=== PATIENT | female | born 1930 | race Caucasian/White ===

== ENCOUNTER 2019-12-22 06:39 | Observation (INO) ==
--- NOTE | 2019-11-24 13:13 | PAT Medication Instructions ---
Medication Instructions Date of Service November 24, 2019 Home Medications acetaminophen [Tylenol] 325 mg PO QID PRN multivitamin 1 tab PO DAILY naproxen sodium [Aleve] 220 mg PO BID PRN ASK your surgeon for instructions naproxen sodium [Aleve] 220 mg PO BID PRN DO NOT take the morning of surgery multivitamin 1 tab PO DAILY Take morning of surgery With a small sip of water, OTHERWISE NOTHING TO EAT OR DRINK AFTER MIDNIGHT: acetaminophen [Tylenol] 325 mg PO QID PRN (okay to take up to 4 hours prior to s urgery if needed) Take evening before surgery acetaminophen [Tylenol] 325 mg PO QID PRN (if needed) Other Notes If you have any questions please call us at [phone] or [phone] or [phone] or [phone]
--- NOTE | 2019-11-26 14:49 | Anesthesiology Consultation ---
Date of Service November 26, 2019 Assessment & Plan (1) Encounter for pre-operative examination: - Systolic murmur at PAT visit: note sent to PCP requesting ECHO preoperatively (Dr. St). Per PAT assessment on 11/25: Travel screen-Lives in [facility]. No known COVID-19 positive contacts. No current COVID-19 related symptoms. No hx of COVID-19 testing. Patient scheduled for preop COVID testing 12/16 (at surgeon's office). Awaiting results. Chart Review Chart Review: Patient seen in Pre Admission Testing Teaching & Discussion Pre-Anesthesia Teaching/Discussion Notes: Instructed NPO after midnight before surgery,except medications with 15 cc of water. Medication instructions provided according to the PAT guidelines. History Surgery Operation Date: 12/22/19 10:40 Proposed Procedures p Left Total Hip Replacement - Tunde Staley MD Height/Weight Height: 5 ft 7 in Weight: 73.9 kg Allergies Allergy/AdvReac Type Severity Reaction Status Date / Time No Known Allergies Allergy Verified 11/19/19 12:24 Medications Home Medications Medication Instructions Recorded Confirmed Last Taken acetaminophen [Tylenol] 325 mg PO QID PRN 11/19/19 11/19/19 Unknown multivitamin 1 tab PO DAILY 11/19/19 11/19/19 Unknown naproxen sodium [Aleve] 220 mg PO BID PRN 11/19/19 11/19/19 Unknown Past Medical History Medical History Arthritis of left hip Claustrophobia Osteoarthritis Exercise / Class Metabolic Activity III < 4 Walking/Shop/Light housework Past Family History Family History Other No family history of adverse response to anesthesia Past Surgical History Surgical History History of cataract surgery History of cholecystectomy History of colonoscopy History of knee replacement procedure of left knee History of knee replacement procedure of right knee History of total abdominal hysterectomy and bilateral salpingo-oophorectomy Past Anesthesia History No Hx of Anesthesia Complications (except post-op nausea) and No Family Hx of Anesthesia Complications History of PONV No Hx of Motion Sickness and History of PONV (+ nausea) Social History Smoking Status: Never smoker Do You Dip or Chew Tobacco: No Hx Alcohol Use: No Hx Substance Use: No substance use type: does not use Review of Systems Mild reflux. Patient denies chest pain, shortness of breath, fever, chills, reflux, cough, wheezing, palpitations. Physical Exam Vital Signs VITALS BP 158/80 P 74 TEMP 98.4 SP02 98%RA RESP 18 PHYSICAL Full neck and c-spine range of motion. Full TMJ range of motion. TMD 3 finger breaths Mallampati Score 3 Dentition:full dentures upper/lower Lungs: clear throughout to auscultation Cardiac: regular rate and rhythm, II/ systolic murmur Spine: normal Carotid arteries: negative bruit Extremities: no edema Testing Laboratory Results 11/26/19 15:25 11/26/19 15:25 PT 10.4 Seconds (9.0-12.0) 11/26/19 15:25 INR 1.0 (0.9-1.1) 11/26/19 15:25 APTT 32.4 Seconds (21.0-31.0) H 11/26/19 15:25 Blood Type A Positive 11/26/19 15:25 Antibody Screen POSITIVE A 11/26/19 15:25 Blood bank aware/state nothing further needed preoperatively regarding + T&S antibodies* Preop testing to be faxed to PCP for their reference* Electrocardiogram Date: 11/26/19 SR with PAC's at 71bpm. RAD. unconfirmed report* Chest X-Ray Date: 11/26/19 Negative chest. Mild emphysematous change
[2019-11-26 16:03] LABS: Basophils # (auto) 0.02 K/uL (0-0.2); Basophils % (auto) 0.4 %; Eosinophils # (auto) 0.03 K/uL (0-0.5); Eosinophils % (auto) 0.6 %; Hematocrit (blood only) 32.3 % (37-47); Hemoglobin 10.4 g/dL (12.0-16.0); Immature Granulocytes # (auto) 0.01 K/uL (0.00-0.02); Immature Granulocytes % (auto) 0.2 %; Lymphocytes # (auto) 1.25 K/uL (1.2-3.4); Mean Corpuscular Hemoglobin 30.4 pg (25-34); Mean Corpuscular Hgb Conc 32.2 g/dL (32-36); Mean Corpuscular Volume 94.4 fL (80-100); Mean Platelet Volume 9.7 fL (7.4-10.4); Monocytes # (auto) 0.45 K/uL (0.11-0.59); Neutrophils # (auto) 3.25 K/uL (1.4-6.5); Neutrophils % (auto) 64.8 %; Platelet Count 259 K/uL (130-400); RDW Coefficient of Variation 14.4 % (11.5-14.5); RDW Standard Deviation 49.9 fL (36.4-46.3); Red Blood Count 3.42 M/uL (4.2-5.4); White Blood Count 5.01 K/uL (4.8-10.8)
[2019-11-26 16:13] LABS: Partial Thromboplastin Ratio 1.2; Partial Thromboplastin Time 32.4 Seconds (21.0-31.0); Prothrombin Time 10.4 Seconds (9.0-12.0)
--- NOTE | 2019-11-26 16:19 | XRay Report ---
XR chest Pre-admission PA/Lat CLINICAL HISTORY: pat preoperative COMPARISON STUDY: No previous studies for comparison. FINDINGS: The bones soft tissues and hemidiaphragms are normal. The cardiomediastinal silhouette is n ormal. The lungs are clear. The pulmonary vasculature is normal. IMPRESSION: Negative chest. Mild emphysematous change ACT 112: Negative or not required by law. The above report was generated using voice recognition software. It may contain grammatical, syntax or spelling errors. Electronically signed by: Ralph Ochoa M.D. 11/26/2019 4:18 PM
[2019-11-26 16:34] LABS: BUN Creatinine Ratio 31.2 (10-20); Blood Urea Nitrogen 30 mg/dl (7-18); C Reactive Protein < 0.29 mg/dl (0-0.29); Calcium 9.3 mg/dl (8.5-10.1); Carbon Dioxide 29 mmol/L (21-32); Chloride 108 mmol/L (98-107); Est GFR (African American) 60.4; Est GFR (Non-African American) 52.1; Glucose 85 mg/dl (70-99); Potassium 4.5 mmol/L (3.5-5.1); Sodium 141 mmol/L (136-145)
--- NOTE | 2019-11-26 17:17 | Electrocardiogram Report ---
Test Reason : Blood Pressure : / mmHG Vent. Rate : 071 BPM Atrial Rate : 071 BPM P-R Int : 152 ms QRS Dur : 094 ms QT Int : 404 ms P-R-T Axes : 062 110 049 degrees QTc Int : 439 ms Sinus rhythm with Premature atrial complexes Right axis deviation Abnormal ECG No previous ECGs available Confirmed by Tony Lorenzo ([id number]) on 11/26/2019 5:17:10 PM Referred By: Tunde Staley Confirmed By:Clyde Lorenzo
[~2019-12-22 06:39] MED LIST: ACETAMINOPHEN 500 MG TAB PO SCH; CEFAZOLIN 2000MG 2,000 MG/15 ML SYR IV SCH; FAMOTIDINE 20 MG TAB PO SCH; GABAPENTIN 300 MG CAP PO SCH; LR 500ML BOLUS, THEN 15ML/HR IV SCH; LR 60ML/HR IV SCH; METOCLOPRAMIDE HCL 10 MG TABLET PO SCH; TRANEXAMIC ACID 1,000 MG **IV Pre-op IV SCH
--- NOTE | 2019-12-22 06:50 | History & Physical Bridge Note ---
Date of Service December 22, 2019 History & Physical Bridge Note I have examined the patient, reviewed the History & Physical and in the interval since the performance of the History & Physical I have noted the following changes of clinical significance: no changes noted
[2019-12-22] MEDS ORDERED: MIDAZOLAM HCL 1 MG/ML 2ML VIAL ONE (07:12)
[2019-12-22] MEDS ORDERED: fentaNYL citrate 100 MCG/2 ML VIAL ONE (07:12)
[2019-12-22] MEDS ORDERED: MoRPHine SULFATE PF 1 MG/ML 10 ML AMP/VIAL ONE (07:13)
[2019-12-22] MEDS ORDERED: BUPIVACAINE 0.5 % 5 MG/1 ML PF 10ML VIAL ONE (07:34)
[2019-12-22] MEDS ORDERED: BUPIVACAINE 0.5 % 5 MG/1 ML MPF 30ML VIAL ONE (08:31)
[2019-12-22] MEDS ORDERED: BACITRACIN INJ 50,000 UNIT VIAL ONE (08:31)
[2019-12-22] MEDS ORDERED: EPINEPHrine INJ 1 MG/ML AMP ONE (08:31)
[2019-12-22] MEDS ORDERED: NO NARCOTICS OR SEDATIVES SCH (08:45)
[2019-12-22] MEDS ORDERED: MoRPHine SULFATE PF 1 MG/ML 10 ML AMP/VIAL INT SPINAL ONE (08:45)
[2019-12-22] MEDS ORDERED: LACTATED RINGER'S 500 ML IV PRN (08:45)
[2019-12-22] MEDS ORDERED: NALOXONE HCL 1 MG in SODIUM CHLORIDE 0.9% 1000ML 1,000 ML IV PRN (08:45)
[2019-12-22] MEDS ORDERED: NALOXONE HCL 0.4 MG/1 ML VIAL/CARP IV PRN ×2 (08:45→14:48)
[2019-12-22] MEDS ORDERED: DiphenhydrAMINE HCL 50 MG/ML VIAL IV PRN (08:45)
[2019-12-22] MEDS ORDERED: MoRPHine SULFATE 2 MG/ML CARP IV PRN (08:45)
[2019-12-22] MEDS ORDERED: DC INTRASPINAL MORPHINE SCH (08:45)
[2019-12-22] MEDS ORDERED: ePHEDrine sulfate 50 MG/ML AMP IV PRN (08:45)
[2019-12-22] MEDS ORDERED: ONDANSETRON INJ 2 MG/ML 2 ML VIAL IV PRN ×2 (08:45→14:48)
[2019-12-22] MEDS ORDERED: NALOXONE HCL 0.08 MG in SYRINGE 1.8 ML IV PRN (08:45)
[2019-12-22] MEDS ORDERED: SODIUM CHLORIDE 0.9% 1000ML 1,000 ML IV SCH (08:45)
[2019-12-22] MEDS ORDERED: PROPOFOL IV EMULSION 10 MG/ML 20 ML VIAL IV ONE ×2 (09:24→09:27)
--- NOTE | 2019-12-22 10:44 | Post Operative Brief Note ---
PG Immediate Post Op with CF Date of Surgery December 22, 2019 Pre & Post Diagnosis Operation Date: 12/22/19 08:50 Pre-Op Diagnosis: Left Hip Advanced Degenerative Joint Disease Post-Op Diagnosis: Left Hip Advanced Degenerative Joint Disease I identified the patient and participated in the time-out.: Yes Procedure Operation Date: 12/22/19 08:50 Actual Procedures p Left Total Hip Arthroplasty-Cemented(Left) - Tunde Staley MD Surgeon Tunde Staley MD Pumpman Marko, PAC Estimated Blood Loss 200 Findings Consistent with Post-Op Diagnosis Fluids 600 cc Specimens Specimen Description: A. Left Femoral Head Drains Granger Catheter (16fr granger catheter inserted by Cedrick PAC without difficulty, clear yellow urine for return) Anesthesia Type Spinal MAC Complications none Disposition Accompanied Patient To Recovery: Yes Disposition: Recovery Room
--- NOTE | 2019-12-22 11:07 | Operative Report ---
Post Operative Report Pre & Post Diagnosis Operation Date: 12/22/19 08:50 Pre-Op Diagnosis: Left Hip Advanced Degenerative Joint Disease Post-Op Diagnosis: Left Hip Advanced Degenerative Joint Disease I identified the patient and participated in the time-out.: Yes Procedure Operation Date: 12/22/19 08:50 Actual Procedures p Left Hybrid Total Hip Arthroplasty-Cemented(Left) - Tunde Staley MD Surgeon Tunde Staley MD Nuclear Medicine Technologist Marko, PAC Estimated Blood Loss 200 Findings Consistent with Post-Op Diagnosis Operative findings revealed advanced left hip DJD. She had extensive erosive disease of the femoral head and acetabulum. Diffuse osteopenia. Moderate-sized joint effusion. Moderate synovitis. Fluids 600 cc. Specimens Left femoral head sent for pathology. Drains None. Anesthesia Type Spinal MAC Complications none Disposition Accompanied Patient To Recovery: Yes Disposition: Recovery Room Indications Patient is an 89-year-old quite active and dependent female whose had a several year history of progressing left hip pain and discomfort that is eventually put her in a wheelchair essentially. She has been through extensive conservative treatment. X-rays show progressive left hip arthritis. She failed all conservative measures. She was having great difficulty living and maintaining any that degree of all quality lifestyle. She elected proceed with total hip arthroplasty. Description of Procedure Operative implants consist of: 1. Biomet G7 size 50 mm acetabular shell. 2. 6.5 cancellus acetabular screws 1 of 35 mm in length and 1 to 20 mm length 3. Waldorf hole eliminator. 4. Highly cross-linked polyethylene liner with a 50 mm outer diameter, 36 mm inner diameter. 5. Zeb [place] size 2 standard offset cemented femoral stem. 6. +5/36 mm metal articular ball. Patient was taken to the operating room identified and placed on the operating table supine position protectors were properly padded. IV antibiotics arrived by anesthesia team. Spinal anesthetic been implemented holding area. Moreland catheter was placed in sterile fashion. The patient was then placed in the right lateral decubitus position. Axillary roll was placed. Stulberg hip positioner was used for positioning. The left hip and leg were then prepped and draped in usual sterile fashion. A posterior lateral posterior left hip was then performed to a curvilinear incision centered over the greater trochanter. Sharp dissection was cut through subcutaneous tissue down to level the IT band gluteal fascia. The IT band gluteal fascia were incised longitudinally in line with the skin incision. Of note, the underlying vastus lateralis and the hip abductors were purely scarred in and adherent to the IT band. I had the finger I dissect these off. The piriformis and external rotators were then tagged and taken off the posterior aspect hip joint capsule. Great care was taken throughout the procedure protect the sciatic nerve at all times. Posterior capsulotomy was then performed leaving a flap for later repair. Hip was internally rotated. The hip was dislocated. Femoral neck osteotomy cut was then made with Final Cut about a centimeter above the lesser trochanter. Femoral head was removed and sent for p athology. The femur was retracted anteriorly. Attention drawn the acetabulum. The acetabular labrum was extensively ossified. I did remove the ossified portion. The pulmonary fat was excised. There was no segment medial osteophyte. I then reamed beginning with a size 45 and progressing up to 49. I did enter the entrance with a 50 reamer in order to open it up. A 50 mm Biomet G7 acetabular shell was then placed in about 40 degrees lateral opening and 20 degrees of anteversion. It was fixed with two 6.5 cancellus acetabular screws. An anterior osteophyte was removed. Trial liner was placed. Attention drawn the femur. The proximal femur was entered with a cookie-cutter followed by canal finder and lateralizing reamer. I then broached begin with size 1 and progressing to a 2. The to fit pretty well proximally and I did not want to stress her bone with her 89 years of age and osteoporosis. Use a calcar reamer to smooth off the calcar. Then trialed the hip and the hip was fully stable in full extension and external rotation flexion to 9 degrees into rotation over 50 degrees. Leg length seemed appropriate. Soft tissue tension was appropriate. I elect to place these implants. We did elect to place a cemented stem due to her old age and concerns for a fracture with an uncemented implant. All trial implants were removed. An apex hole limited was placed. Highly cr oss-linked polyethylene liner was placed. A small cement restrictor was placed. A double batch of Palacos G cement was mixed and injected in the canal. A size tubular [place] standard cemented femoral stem was then placed. It was was held until the cement hardened. A +5/36 mm metal articular ball was placed. Hip was located once again found to be stable. We did use a 36 ball in order to maxi keira her stability based on her age. Attention then drawn toward closing. The wound was irrigated cups ounce pulsatile lavage solution. I did inject locally with 30 cc of half percent Marcaine with epinephrine. The posterior capsule and external rotators were then repaired through drill holes in the posterior trochanter with #2 Tycron suture. The IT band gluteal fascia then closed in 1 PDS suture running fashion with subcutaneous tissue then closed with 2 layers of the deep layer #1 Vicryl suture and subcutaneous tissue with 2 Dexon suture in a buried interrupted fashion the skin was closed skin colin. Leg was then cleaned dried and sterile dressed composed of Xeroform, 4 x 4's, sterile ABD pad, foam tape were then applied. Patient then transferred to the recovery room in stable condition. The patient tolerated the procedure well and there were no complications. I attest to the content of the Intraoperative Record and any orders documented therein. Any exceptions are noted below.
--- NOTE | 2019-12-22 11:21 | XRay Report ---
XR hip 1V LT w pelvis CLINICAL HISTORY: Hip arthroplasty COMPARISON: 12/10/2018 DISCUSSION: There are postsurgical changes of a total left hip arthroplasty. The acetabular femoral c omponents appear well seated. There is no dislocation. There are overlying skin colin. There is gas within the soft tissues consistent with recent surgery. There Is No Evidence for Soft Tissue Swellin g. IMPRESSION: Postsurgical changes of a total left hip arthroplasty. ACT 112: Negative or not required by law. Electronically signed by: Cesar Gray M.D. 12/22/2019 11:19 AM
[2019-12-22] MEDS ORDERED: LORazepam 2 MG/4 ML VIAL ONE (12:23)
[2019-12-22] MEDS ORDERED: LORazepam 0.5 MG/1 ML VIAL IV STA (12:35)
[2019-12-22] MEDS ORDERED: NALOXONE HCL 0.4 MG/1 ML VIAL/CARP IV STA (13:47)
--- NOTE | 2019-12-22 14:23 | Anesthesiology Progress Note ---
Date of Service December 22, 2019 Anesthesia Post Procedure Vital Signs Vital Signs: Temp Pulse Pulse Resp BP Pulse Ox 12/22/19 14:15 36.2 C L 68 20 105/57 L 97 12/22/19 14:10 36.4 C L 68 19 123/58 L 100 12/22/19 14:00 65 16 102/58 L 99 12/22/19 13:50 65 14 104/50 L 97 12/22/19 13:40 65 13 85/50 L 99 12/22/19 13:30 64 13 102/52 L 100 12/22/19 13:20 66 13 111/51 L 99 12/22/19 13:10 65 14 104/51 L 98 12/22/19 13:00 64 12 101/51 L 98 12/22/19 12:50 65 14 90/58 L 99 12/22/19 12:40 65 12 101/54 L 100 12/22/19 12:30 66 19 106/56 L 100 12/22/19 12:20 66 14 108/51 L 98 12/22/19 12:10 64 16 111/53 L 99 12/22/19 12:00 68 14 117/54 L 99 12/22/19 11:50 35.8 C L 69 14 113/53 L 95 12/22/19 11:40 65 16 112/57 L 99 12/22/19 11:30 64 16 114/58 L 100 12/22/19 11:20 63 10 L 114/53 L 100 12/22/19 11:10 63 15 113/57 L 100 12/22/19 11:00 67 21 111/55 L 100 12/22/19 10:50 70 17 106/49 L 100 12/22/19 10:43 35.8 C L 76 17 102/47 L 99 12/22/19 07:33 36.5 C 74 18 170/78 H 99 Transfer of Care Handoff Completed per policy Notes Mental Status: alert / awake / arousable Patient Amnestic to Procedure: Yes Nausea / Vomiting: adequately controlled Pain: adequately controlled Airway Patency, RR, SpO2: stable & adequate BP & HR: stable & adequate Hydration State: stable & adequate Neuraxial Anesthesia: was administered and sensory block is resolving Anesthetic Complications: no major complications apparent and Pt Satisfied with anesthetic care Notes: Patient had a prolonged recovery 2/2 hypothermia. Bejou it was likely 2/2 duramorph spinal as patient was being actively warmed with mistral air blanket without change in temp. Temp confirmed via GA route. Ativan 0.5mg given IV for reversal of hypothermia without effect. Sometime later gave 40mcg narcan IV and temp returned to above 36. VSS. Patient ok to be transferred to floor.
[2019-12-22] MEDS ORDERED: TRAMADOL HCL 50 MG TABLET PO PRN (14:48)
[2019-12-22] MEDS ORDERED: MAGNESIUM HYDROXIDE SUSP 30 ML UDC PO PRN (14:48)
[2019-12-22] MEDS ORDERED: bisacodyL 10 MG SUPP PR PRN (14:48)
[2019-12-22] MEDS ORDERED: METOCLOPRAMIDE HCL INJ 5 MG/ML 2 ML VIAL IV PRN (14:48)
[2019-12-22] MEDS ORDERED: ALUMINUM/MAGNESIUM SUSP 30 ML UDC PO PRN (14:48)
[2019-12-22] MEDS: SODIUM CHLORIDE 0.9% 1000ML 1,000 ML IV SCH (15:55)
[2019-12-22] MEDS: CEFAZOLIN 1000MG 1,000 MG/7.5 ML SYR IV SCH ×2 (16:53→23:36)
[2019-12-22] MEDS ORDERED: TRANEXAMIC ACID / 0.7% NACL 1,000 MG/100 ML BAG IV SCH (17:00)
[2019-12-22] MEDS: FERROUS GLUCONATE 324 MG TAB PO SCH (17:54)
[2019-12-22] MEDS: ACETAMINOPHEN 500 MG TAB PO SCH ×2 (17:54→20:43)
[2019-12-22] MEDS: ASCORBIC ACID 500 MG TAB PO SCH (17:55)
[2019-12-22] MEDS ORDERED: KETOROLAC TROMETHAMINE 15 MG/ML VIAL IV SCH (18:00)
--- NOTE | 2019-12-22 19:17 | Progress Notes ---
DATE: 12/22/2019 SUBJECTIVE: An 89-year-old white female postop from a left hybrid total hip arthroplasty. She has done pretty well. She came up the floor and was awake, alert and appropriate, then developed some nausea and they have given her some Zofran. She is sleeping now and sleeping comfortably. OBJECTIVE: VITAL SIGNS: Temperature 36.3. Vital signs stable. GENERAL: Elderly frail female. She is lying in bed, looks completely comfortable. She is sleeping and takes a lot to arouse her likely related to some Zofran. LUNGS: Clear to auscultation. HEART: Has a regular rate and rhythm. ABDOMEN: Soft, nontender, nondistended. EXTREMITIES: Grossly neurovascularly intact except as follows. Examination of the left lower extremity reveals the leg to be well aligned. Dressing is clean, dry and intact. Thigh is soft and supple. Neurological exam is deferred due to her sleeping. X-RAYS: X-rays of the left hip from recovery room reviewed. It shows left hybrid total hip arthroplasty. Components looked to be in good position. No signs of problems. ASSESSMENT: An 89-year-old white female postop from a left hybrid total hip arthroplasty, doing pretty well. She is sedated, likely related to Zofran. Hip is located. PLAN: 1. DVT prophylaxis including thigh-high TEDs, SCDs, and aspirin twice a day. 2. PT/OT. Weight bear as tolerated. Left total hip protocol. 3. Pain control, doing well with current pain regimen. We are going to really need to limit her narcotics to avoid sedation as well as side effects. 4. IV antibiotics x24 hours. 5. Disposition: She is planning to be discharged to home with home health and her family's care once adequately recovered.
[2019-12-22] MEDS: ASPIRIN 81 MG ECTAB PO SCH (20:43)
[2019-12-22] MEDS: DOCUSATE SODIUM 100 MG CAP PO SCH (20:43)
[2019-12-22] MEDS: SENNA 8.6 MG TAB PO SCH (20:43)
[2019-12-23] MEDS: SODIUM CHLORIDE 0.9% 1000ML 1,000 ML IV SCH (01:19)
[2019-12-23] MEDS ORDERED: HYDROmorphone INJ 0.5 MG/0.5 ML SYR IV PRN (02:46)
[2019-12-23] MEDS: ACETAMINOPHEN 500 MG TAB PO SCH ×3 (05:19→21:00)
[2019-12-23] MEDS: KETOROLAC TROMETHAMINE 15 MG/ML VIAL IV SCH ×4 (05:20→23:56)
[2019-12-23 06:12] LABS: Basophils # (auto) 0.01 K/uL (0-0.2); Basophils % (auto) 0.1 %; Eosinophils # (auto) 0.01 K/uL (0-0.5); Eosinophils % (auto) 0.1 %; Hematocrit (blood only) 27.1 % (37-47); Hemoglobin 8.9 g/dL (12.0-16.0); Immature Granulocytes # (auto) 0.01 K/uL (0.00-0.02); Immature Granulocytes % (auto) 0.1 %; Lymphocytes # (auto) 1.07 K/uL (1.2-3.4); Lymphocytes % (auto) 15.4 %; Mean Corpuscular Hemoglobin 31.1 pg (25-34); Mean Corpuscular Hgb Conc 32.8 g/dL (32-36); Mean Corpuscular Volume 94.8 fL (80-100); Mean Platelet Volume 10.1 fL (7.4-10.4); Monocytes # (auto) 0.57 K/uL (0.11-0.59); Monocytes % (auto) 8.2 %; Neutrophils # (auto) 5.29 K/uL (1.4-6.5); Neutrophils % (auto) 76.1 %; Platelet Count 225 K/uL (130-400); RDW Coefficient of Variation 14.9 % (11.5-14.5); RDW Standard Deviation 51.5 fL (36.4-46.3); Red Blood Count 2.86 M/uL (4.2-5.4); White Blood Count 6.96 K/uL (4.8-10.8)
[2019-12-23 06:52] LABS: BUN Creatinine Ratio 25.1 (10-20); Calcium 8.1 mg/dl (8.5-10.1); Creatinine Clr Calc Pharmacy 50.4 ml/min; Est GFR (African American) 82.5; Est GFR (Non-African American) 71.2; Potassium 4.4 mmol/L (3.5-5.1)
[2019-12-23] MEDS: ASCORBIC ACID 500 MG TAB PO SCH ×2 (07:55→16:16)
[2019-12-23] MEDS: FERROUS GLUCONATE 324 MG TAB PO SCH ×2 (07:56→16:15)
[2019-12-23] MEDS: DOCUSATE SODIUM 100 MG CAP PO SCH ×2 (08:20→21:00)
[2019-12-23] MEDS: MULTIVITAMIN TAB PO SCH (08:20)
[2019-12-23] MEDS: ASPIRIN 81 MG ECTAB PO SCH ×2 (08:20→21:00)
[2019-12-23] MEDS ORDERED: PROPRANOLOL PO SCH (09:00)
[2019-12-23] MEDS ORDERED: MULTIVITAMIN TAB PO SCH (09:00)
--- NOTE | 2019-12-23 17:57 | Progress Notes ---
DATE: 12/23/2019 SUBJECTIVE: An 89-year-old white female postop day 1 from a left hip replacement. She is doing well. Minimal pain. Had a good night last night. Therapy went well. No chest pain or shortness of breath. Not feeling dizzy or lightheaded. Very excited about how things are going with her hip. OBJECTIVE: VITAL SIGNS: Temperature 36.6. Vital signs are stable. GENERAL: Shows a frail elderly female. She is sitting up in her bedside chair and is eating lunch when I visited her today. She is talking to her daughter. EXTREMITIES: Examination of the left hip reveals the dressing to be clean, dry and intact. Leg lengths are equal. Hip is located. She is neurologically intact. She can dorsiflex and plantarflex her foot appropriately. LABORATORY DATA: Hemoglobin 8.9. Hematocrit 27.1. Electrolytes are stable. ASSESSMENT: An 89-year-old white female postoperative day 1 from a left hip replacement, doing quite well. Pain is controlled. Hip is located. She is neurologically intact. PLAN: 1. DVT prophylaxis including thigh-high TEDs, SCDs, and aspirin twice a day. 2. PT/OT. Weight bear as tolerated. Left total hip protocol. 3. Pain control, doing well with current pain regimen. 4. Disposition: Plan to discharge to home with some home health and her family's assistance likely tomorrow if doing okay.
[2019-12-23] MEDS: SENNA 8.6 MG TAB PO SCH (21:00)
[2019-12-24] MEDS: ACETAMINOPHEN 500 MG TAB PO SCH (06:00)
[2019-12-24] MEDS: KETOROLAC TROMETHAMINE 15 MG/ML VIAL IV SCH ×2 (06:01→11:49)
[2019-12-24 06:24] LABS: Basophils # (auto) 0.02 K/uL (0-0.2); Basophils % (auto) 0.3 %; Eosinophils # (auto) 0.06 K/uL (0-0.5); Eosinophils % (auto) 0.8 %; Hematocrit (blood only) 26.9 % (37-47); Hemoglobin 8.8 g/dL (12.0-16.0); Immature Granulocytes # (auto) 0.01 K/uL (0.00-0.02); Immature Granulocytes % (auto) 0.1 %; Lymphocytes # (auto) 0.72 K/uL (1.2-3.4); Lymphocytes % (auto) 9.3 %; Mean Corpuscular Hemoglobin 30.8 pg (25-34); Mean Corpuscular Hgb Conc 32.7 g/dL (32-36); Mean Corpuscular Volume 94.1 fL (80-100); Monocytes # (auto) 0.58 K/uL (0.11-0.59); Monocytes % (auto) 7.5 %; Neutrophils # (auto) 6.32 K/uL (1.4-6.5); Platelet Count 212 K/uL (130-400); RDW Standard Deviation 51.2 fL (36.4-46.3); Red Blood Count 2.86 M/uL (4.2-5.4); White Blood Count 7.71 K/uL (4.8-10.8)
[2019-12-24] MEDS: FERROUS GLUCONATE 324 MG TAB PO SCH (07:31)
[2019-12-24] MEDS: ASCORBIC ACID 500 MG TAB PO SCH (07:31)
[2019-12-24] MEDS: MULTIVITAMIN TAB PO SCH (07:32)
[2019-12-24] MEDS: DOCUSATE SODIUM 100 MG CAP PO SCH (07:32)
[2019-12-24] MEDS: ASPIRIN 81 MG ECTAB PO SCH (07:32)
--- NOTE | 2019-12-24 07:41 | Progress Notes ---
DATE: 12/24/2019 SUBJECTIVE: An 89-year-old white female postop day 2 from a left hip replacement. She is doing well. Pain is controlled. Therapy has gone pretty well. No new complaints. No chest pain or shortness of breath. Not feeling dizzy or lightheaded. OBJECTIVE: VITAL SIGNS: Temperature 36.7. Vital signs stable. GENERAL: Shows a pleasant elderly female. She is lying in bed, looks comfortable. LUNGS: Clear to auscultation. HEART: Regular rate and rhythm. ABDOMEN: Soft, nontender, nondistended. EXTREMITIES: Grossly neurovascularly intact except as follows: Examination of the left leg reveals the dressing to be clean, dry and intact. Leg lengths are equal. Hip is located. She is neurologically intact. LABORATORY DATA: Hemoglobin 8.8. Hematocrit 26.9. ASSESSMENT: An 89-year-old white female postop day 2 from left hip replacement, doing well. Pain is controlled. Hip is located. She is neurologically intact. She is mildly anemic, but asymptomatic. Hemoglobin and hematocrit are stable. PLAN: 1. DVT prophylaxis including thigh-high TEDs, SCDs, and aspirin twice a day. 2. PT/OT. Weight bear as tolerated. Left total hip protocol. 3. Pain control, doing well with current pain regimen. 4. Anemia. Currently asymptomatic. Will continue iron supplementation. 5. Disposition: Plan to discharge to home with some home health and family's assistance later today.
--- NOTE | 2019-12-29 06:39 | Discharge Summary ---
Date of Service December 29, 2019 Admission HPI Per Admitting Provider Documented in the H&P Admission Exam (Per Admitting) Constitutional Documented in the H&P Discharge Data Consultations 12/23/19 08:00 Consult Case Management - Discharge Planning Routine Procedures Performed Operation Date: 12/22/19 08:50 Actual Procedures p Left Total Hip Arthroplasty-Cemented(Left) - Tunde Staley MD Hospital Course (1) Status post total hip replacement, left: 89-year-old female admitted on 12/22/2019 and underwent total hip replacement. She tolerated the procedure well and there were no complications. She is transferred to the PACU postoperatively and later to the orthopedic floor for further care. She was given Ancef for antibiotic prophylaxis. She was g iven JOSIAS stockings, SCDs, and aspirin for DVT prophylaxis. Her hemoglobin, hematocrit, and vital signs were monitored during her hospital stay and remained stable. She was anemic but did not require any blood transfusions. She did receive an iron supplement. There were no complications during her hospital stay. By postoperative day 2 she was tolerating a regular diet, pain was controlled with oral pain medicine, and she is participating in physical therapy. On postop day 2 she was discharged home and set up with home health services. She was given printed discharge instructions as well as new prescriptions for extra strength Tylenol, tramadol, iron supplement, aspirin. Continue physical therapy, weightbearing as tolerated and continue to follow total hip precautions. Continue JOSIAS stockings. Follow-up approximately 2 weeks postop or sooner if any problems or concerns. Coding Level of Care Code None Diagnoses Status post total hip replacement, left Z96.642
== END 2019-12-24 13:55 | disposition home health service (06) ==
LOC: ASU 06:39 → 3E 06:39
DX: Z96.653 Presence of artificial knee joint, bilateral; K21.9 Gastro-esophageal reflux disease without esophagitis; Z11.59 Encounter for screening for other viral diseases; Z79.899 Other long term (current) drug therapy; M16.12 Unilateral primary osteoarthritis, left hip